=== PATIENT | male | born 1945 | race Caucasian/White ===

== ENCOUNTER → 2017-03-06 | Outpatient (CLI) | payer MEDICARE, MEDICAID ==
[2017-03-06 09:17] LABS: BASOPHIL # 0.1 K/uL (0.0-0.2); BASOPHIL % 0.7 %; EOSINOPHIL # 0.6 K/uL (0.0-0.5); EOSINOPHIL % 7.8 %; HEMATOCRIT 36.6 % (37.0-53.0); HEMOGLOBIN 12.2 g/dL (11.0-16.0); IMMATURE GRANULOCYTE % 0.3 %; LYMPHOCYTE # 1.1 K/uL (0.8-4.0); LYMPHOCYTE % 14.8 %; MCH 30.9 pg (27.0-34.0); MCHC 33.3 gm/dL (32.0-36.5); MCV 92.7 fl (83.0-98.0); MONOCYTE # 0.5 K/uL (0.0-1.0); MONOCYTE % 6.5 %; MPV 13.3 fl (9.4-12.4); NEUTROPHIL # (ANC) 5.3 K/uL (1.4-9.0); NEUTROPHIL % 69.9 %; NRBC % 0 /100WBC (0-0.00); PLATELET COUNT 106 K/uL (150-450); RBC 3.95 M/uL (3.50-5.50); RDW-CV 13.5 % (11.9-14.6); WBC 7.6 K/uL (4.0-11.0)
[2017-03-06 09:49] LABS: ALBUMIN 3.2 gm/dL (3.5-5.0); ALK PHOS 96 IU/L (33-138); ALT 24 IU/L (12-78); ANION GAP 14.9 (10.0-19.0); AST 23 IU/L (10-40); BLOOD UREA NITROGEN 17 mg/dL (6-24); CALCIUM 7.8 mg/dL (8.5-10.5); CHLORIDE 107 mMol/L (96-110); CO2 26 mMol/L (22-32); CREATININE 0.8 mg/dL (0.6-1.3); ESTIMATED GFR (MDRD EQUATION) > 60; POTASSIUM 3.9 mMol/L (3.7-5.1); SODIUM 144 mMol/L (135-145); TOTAL BILIRUBIN 0.5 mg/dL (0.0-1.5); TOTAL PROTEIN 6.8 g/dL (6.0-8.4)
== END | disposition disaster alternative care site (69) ==
LOC: LBETH 03-05 10:01
PROVIDERS: Physician Assistant
DX: Z79.899 Other long term (current) drug therapy (principal); I10 Essential (primary) hypertension; Z12.5 Encounter for screening for malignant neoplasm of prostate

== ENCOUNTER → 2017-06-05 | Outpatient (CLI) | payer MEDICARE, MEDICAID ==
[2017-06-05 08:58] LABS: BASOPHIL % 0.4 %; EOSINOPHIL # 0.4 K/uL (0.0-0.5); HEMATOCRIT 39.6 % (37.0-53.0); HEMOGLOBIN 13.3 g/dL (11.0-16.0); IMMATURE GRANULOCYTE % 0.4 %; LYMPHOCYTE # 1.5 K/uL (0.8-4.0); LYMPHOCYTE % 17.2 %; MCHC 33.6 gm/dL (32.0-36.5); MCV 92.3 fl (83.0-98.0); MONOCYTE # 0.6 K/uL (0.0-1.0); MPV 13.8 fl (9.4-12.4); NEUTROPHIL # (ANC) 5.9 K/uL (1.4-9.0); NRBC % 0 /100WBC (0-0.00); PLATELET COUNT 122 K/uL (150-450); RBC 4.29 M/uL (3.50-5.50); RDW-CV 13.1 % (11.9-14.6); WBC 8.4 K/uL (4.0-11.0)
== END ==
LOC: LBETH 06-03 13:16
PROVIDERS: Physician Assistant
DX: Z79.899 Other long term (current) drug therapy (principal)